=== PATIENT | female | born 1975 | race Caucasian/White ===

== ENCOUNTER → 2024-12-01 10:13 | Outpatient (CLI) | payer OTHER, SELFPAY | PROVIDERS: PCP Nurse Practitioner Family; Referring Provider Obstetrics & Gynecology; Visit Provider Obstetrics & Gynecology | DX: N83.202 Unspecified ovarian cyst, left side (principal) | CPT/HCPCS: 36415; 86304 ==

== ENCOUNTER 2024-12-10 10:08 | Day surgery (SDC) | payer OTHER, SELFPAY ==
[2024-12-04 08:19] VITALS: BMI 41.9
--- NOTE | 2024-12-10 | PATH_ITS ---
[facility] Accession Number: [id number] No. of containers..02 Tissue . 01 Material submitted: . PART A: ovary - LEFT OVARY AND LEFT DISTAL FALLOPIAN TUBE PART B: fallopian tube - BILATERAL FALLOPIAN TUBES (RIGHT FULL AND LEFT PARTIAL) . 01 Diagnosis: A. LEFT OVARY AND LEFT DISTAL FALLOPIAN TUBE, OVARIAN CYSTECTOMY AND PARTIAL SALPINGECTOMY: Benign serous cystadenoma. Segment of fimbriated fallopian tube with no diagnostic abnormality. Negative for malignancy. . B. BILATERAL FALLOPIAN TUBES, SALPINGECTOMIES: Fimbriated fallopian tube with simple benign paratubal cysts. Additional segment of fallopian tube with no diagnostic abnormality. No evidence of neoplasm. [facility] 12/14/2024 1605 Local . 01 Electronically signed: . Hari Sanches MD, PhD, Pathologist NPI- [id number] . 01 Gross description: . A. Received in formalin with two identifiers and left ovary and left fallopian tube, is a fimbriated fallopian tube (5.3 x 1.0 cm) attached to an intact cyst weighing 102 grams and measuring 8.5 x 6.7 x 4.4 cm. The external surface of the cyst is sheikh and slightly wrinkled and is inked blue. The cyst contains straw-colored serous fluid. The cyst wall averages 0.1 cm thick with a secondary small simple cystic structure 1.0 cm in greatest dimension filled with clear serous fluid. The internal surface of the cyst is sheikh to violaceous and wrinkled with dilated vasculature and no excrescences or thickening identified. . The fallopian tube has violaceous, smooth serosa with a cystic structure 0.3 cm in greatest dimension filled with clear serous fluid. The lumen is stellate and unremarkable. . Marine Pilot sections to include the fallopian tube and cyst wall are submitted in A1-A6. . B. Received in formalin with two identifiers and bilateral fallopian tubes, right full and left partial, is an intact fimbriated fallopian tube 6.5 cm by 1.1 cm in diameter and a nonfimbriated partial fragment of tube 0.9 x 0.7 cm. Both tubes have violaceous, smooth serosa, and the intact tube has cystic structures up to 1.7 cm in greatest dimension filled with sheikh serous fluid. The lumen are stellate and unremarkable. Marine Pilot sections are submitted as follows: B1: Intact tube. B2: Partial tube. ([id number]) /MRV 12/11/2024 1811 Local . 01 Microscopic: . B. Complete cross-sections of fallopian tube are seen. . 01 Pathologist provided ICD-10: N83.202 . 01 CPT . 165388, [id number] Specimen Comment: A courtesy copy of this report has been sent to [phone] Performed at: [address] [address], [place], [place] [id number] MD Venkatesh Woodall MD Phone: [phone]
--- NOTE | 2024-12-10 09:34 | PM.PREOP ---
Pre-operative Note COVID-19 COVID-19 status: Not tested Interval Note History & Physical reviewed/Exam performed by Physician: Yes Changes to H&P: No
[2024-12-10 11:04] VITALS: BMI 41.9
[2024-12-10] MEDS: SCOPOLAMINE 1 PATCH TOP (11:17)
[2024-12-10] MEDS: FAMOTIDINE 20 MG/2 ML VIAL IV (11:17)
[2024-12-10] MEDS: ACETAMINOPHEN IV 1,000 MG/100 ML VIAL 400 MG IV (11:17)
[2024-12-10] MEDS: LACTATED RINGERS 1,000 ML 42 ML IV ×3 (11:18→16:04)
[2024-12-10 11:31] VITALS: BP 120/69; PULSE 78; RESP 16; TEMP 36.6; O2SAT 98
--- NOTE | 2024-12-10 13:38 | SUR.OPER ---
Lithotomy on padded OR bed; bariatric extensions added to the sides of bed by the arms. Chuichu Pad Positioner under torso. Head on pillow, arms padded and tucked at sides. Purple strap across shoulders. Legs secured in padded yellow fins stirrups.
[2024-12-10] MEDS: BUPIVACAINE 0.5% W/ EPI (PF) 30 ML VIAL INJ (13:47)
[2024-12-10 15:05] VITALS: BP 106/33; PULSE 87; RESP 16; TEMP 36.2; O2SAT 97
[2024-12-10 15:10] VITALS: BP 116/54; PULSE 81; RESP 16; O2SAT 94
[2024-12-10 15:20] VITALS: BP 110/55; PULSE 80; RESP 16; TEMP 36.2; O2SAT 98
[2024-12-10] MEDS: OXYCODONE/ACETAMINOPHEN 5/325 TABLET 1 TAB PO (15:22)
[2024-12-10 15:28] VITALS: BP 110/60; PULSE 68; RESP 16; O2SAT 98
[2024-12-10] MEDS: ONDANSETRON 4 MG/2 ML INJ IV (15:54)
--- NOTE | 2024-12-10 16:04 | PM.GYNOP.1 ---
Operative Date/Time/Diagnoses Date of procedure: 12/10/24 Time of procedure: 14:15 Pre-op diagnosis: Left ovarian cyst Request for sterilization Embedded Mirena IUD Post-op diagnosis: same Procedure & Clinicians Procedure: Procedures Operation Date: 12/10/24 11:45 Actual Procedure Side Surgeon p Laparoscopic left oophorectomy s Laparoscopic bilateral salpingectomy Left Bilateral MD Cleveland Miller MD s Cervical dilation with removal and replacement of Mirena IUD Not Applicable Cleveland Chapa MD Indications: Marie is a 49-year-old who had an Mirena IUD inserted 13 years ago and presented originally to this office for removal and replacement. Attempts by her primary care provider to remove the IUD were unsuccessful but a subsequent ultrasound performed about 2 months ago showed that the IUD was in correct position and according to the patient also showed a cyst on one of her ovaries. Unfortunately, attempts to remove the IUD at the time of her initial presentation in this office were also unsuccessful. Report of imaging shows slight uterine enlargement but also shows a 10.7 cm unilocular cyst involving the left ovary. Persistence of the large unilocular cyst in the left adnexa confirmed by bedside ultrasound 12/01/2024. The cyst is asymptomatic but she is concerned about potential complications if the cyst ruptures or torses. Patient has not had any issues with her IUD but has started having regular menses again which had initially stopped with the insertion of the Mirena. 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 After those discussions, will move forward with hysteroscopic evaluation of the endometrial cavity, and removal/replacement of the Mirena IUD at that time. In addition due to the patient's large cystic mass involving the left ovary, will also perform laparoscopic cystectomy with robot assist if available at the same time. Patient also had CA 125 drawn a today (12.9), and she presents for her scheduled surgery. Surgeon: Cleveland Chapa Anesthesia Type: General Operative Notes Findings: The uterus is normal in size and shape. There were no significant abnormalities of the anterior or posterior cul-de-sac. The right adnexa is unremarkable with a normal-appearing ovary and a normal appearing fallopian tube. The left adnexa however demonstrates a 10+ cm unilocular cyst within the substance of the left ovary and upon inspection there is little if any normal-appearing ovarian tissue remaining. In addition the cyst on that side was abutting the hilar vessels and therefore attempts to separate the cyst from the remaining substance of the ovary were felt to be fruitless and potentially dangerous for the patient therefore the decision was made to remove the entire left ovary. The remainder of the abdomen and pelvis were normal to visualization by laparoscopy. The IUD strings were not visible but once the cervix was successfully dilated, the intact Mirena was easily grasped and removed with a Samina forceps therefore no hysteroscopy was necessary to identify the location of the IUD or remove it. Closure Type: primary Specimen(s): right tube and left tube & ovary Applied: none Estimated blood loss (mL): 10 Blood products transfused: none Procedure in detail: With the patient under satisfactory general anesthesia in the modified dorsal lithotomy position, the perineum, vagina, and abdomen were prepped and draped in the usual manner for laparoscopy/hysteroscopy. Pre-surgical safety time-out was then taken in accordance with [facility] [place] protocols. The umbilicus was then infiltrated with 0.25% Marcaine with epinephrine and a 2-1/2 cm vertical incision was made in the skin of the inferior edge of the umbilicus. The dissection was carried down to the fascia which was grasped with Edilson clamps and a transverse incision made with Metzenbaum scissors. Stay sutures of 0 Vicryl were placed at each end of the incision and the peritoneal cavity entered bluntly with Metzenbaum scissors. A Moody cannula was then placed through the defect and the abdomen was insufflated with carbon dioxide after the Moody was secured using the 0 Vicryl sutures. Correct placement of the Moody was confirmed visually and a 2nd and 3rd 5 mm port was placed in the right and left mid quadrants after infiltration of the skin and subcutaneous tissues with Marcaine. Using a 3 puncture technique, the pelvis and abdomen were thoroughly visualized and the findings were as noted above. The distal tube was used to elevate the ovary on the left side and the infundibulopelvic ligament was coagulated and divided using a PowerSeal device. The dissection was carried across the mesosalpinx to the cornua where the utero-ovarian ligament and fallopian tube were coagulated and divided thus freeing up the adnexal structures on the left. Attention was then turned to the right side with the distal tube grasped and elevated. The fimbria of Sandi was then coagulated and divided with the PowerSeal device in that dissection to was carried across the move the salpinx to the level of the cornua where the fallopian tube was coagulated and divided. The 5 mm scope was then relocated to a lateral port and an Endo-Catch bag was introduced through the umbilical port. The ovary and tube were placed within the Endo-Catch and the Endo-Catch bag brought up through the umbilical incision after removal of the Moody cannula. The cyst was drained demonstrating clear fluid and the specimens were able to be retrieved through the umbilical incision without spillage of fluid or other material removed during the course of the surgery. The Moody cannula was then replaced and secured with stay sutures. The pelvis and abdomen were again thoroughly inspected and there were no other abnormalities noted. The pneumoperitoneum was then vented and the umbilical incision fascia was closed 0 Vicryl interrupted. Skin edges were then brought together with a 4-0 Monocryl suture using an inverted interrupted stitch inappropriate dressings were applied. Attention was then turned to removal and replacement of the IUD. The bivalve speculum was inserted in the vagina and the anterior lip of the cervix grasped with a single-tooth tenaculum. The endocervical canal was then dilated to 6 mm using Hegar dilators. The uterine cavity was then explored with a [place] forceps and the IUD was easily retrieved intact. A new Mirena IUD was then inserted in the insertion device into the upper aspect of the endometrial cavity where it was released in the usual manner. The strings were trimmed to 3 cm. The tenaculum was then removed from the anterior lip of the cervix and no significant bleeding was noted. The speculum was then removed from the vagina and the procedure terminated. The patient was then awakened from anesthesia and transferred to the PACU for a period of observation and recovery after having tolerated the procedure well. Complications: none Post-operative Condition: stable Disposition: PACU Plan for aftercare: Routine postoperative care with plans for follow-up in 2 weeks or as needed.
[2024-12-10] MEDS: droPERidol 2.5 MG/ML VIAL 1.25 MG IV (16:26)
[2024-12-10 16:35] VITALS: BP 110/62; PULSE 69; RESP 18; O2SAT 98
== END 2024-12-10 16:47 | disposition home or self-care (01) ==
PROVIDERS: PCP Nurse Practitioner Family; Referring Provider Nurse Practitioner Family; Visit Provider Obstetrics & Gynecology
PROC: (CPT 58661; principal; 2024-12-10 11:45)
PROC: 0UDB8ZZ Extraction of Endometrium, Via Natural or Artificial Opening Endoscopic (ICD-10-PCS; CPT 58558; 2024-12-10 11:45)
DX: Z30.2 Encounter for sterilization (principal); N83.202 Unspecified ovarian cyst, left side; T83.39XA Other mechanical complication of intrauterine contraceptive device, initial encounter
CPT/HCPCS: 58661; 58301; 81025; A9270; C1713; J0131; J1100; J1171; J1790; J1885; J2250; J2405; J2704; J3010; J3490